=== PATIENT | male | born 1965 | race Two or more races ===

== ENCOUNTER 2020-04-18 15:38 | Emergency (ER) | payer OTHER ==
[~2020-04-18] VITALS: Ht 160 cm; Wt 67.9 kg
--- NOTE | 2020-04-18 15:52 | NUR ---
NEURO. SURG. CALLED @ [id number]
[2020-04-18] MEDS ORDERED: SODIUM CHLORIDE FLUSH 10ML SYR IVF ONE (16:00)
[2020-04-18] MEDS ORDERED: LORazepam 2 MG/ML, 1ML IVPush PRN ×2 (16:00→16:30)
[2020-04-18] MEDS ORDERED: THIAMINE 100 MG in SODIUM CHLORIDE 0.9% 50 ML IVPB ONE (16:00)
[2020-04-18] MEDS ORDERED: LORazepam 2 MG/ML, 1ML ONE (16:10)
--- NOTE | 2020-04-18 16:15 | NUR ---
[facility] ems from [place]. pt had a fall last night while intoxicated. pt was found by brother this am lethargic. pt taken to the hospital. ct revealed subarachnoid bleed and right ruptured temapnic membrane. ems transport to [facility]. in route to [facility] total of 20 mg of morphine given in 5 mg incremnts. plus 1 mg dilaudid. per ems no medial hx, allegies, or meds. pt does have a hx of chronic etoh abuse. pt arrives to er neuro intact. axox4 and able to move all extremities. pupils equal and reactive to light at 2 mm.
[2020-04-18] MEDS ORDERED: ACETAMINOPHEN 325 MG TABLET PO PRN (16:30)
[2020-04-18] MEDS ORDERED: ENALAPRILAT 1.25 MG/ML, 2ML IVPush PRN (16:30)
[2020-04-18] MEDS ORDERED: LABETALOL 5MG/ML, 20ML IVPush PRN (16:30)
[2020-04-18] MEDS ORDERED: POLYETHYLENE GLYCOL 17 GM PACKET PO PRN (16:30)
[2020-04-18] MEDS ORDERED: ONDANSETRON 2MG/ML, 2ML IVPush PRN (16:30)
[2020-04-18] MEDS ORDERED: BISACODYL 10 MG SUPP PR PRN (16:30)
[2020-04-18] MEDS ORDERED: morphine SULFATE 10 MG/ML, 1ML IVPush PRN (16:30)
[2020-04-18] MEDS ORDERED: POTASSIUM CHLORIDE 20 MEQ, MAGNESIUM SULFATE 2 GM, THIAMINE 200 MG, MVI ADULT 10 ML, FO... IV SCH (16:30)
[2020-04-18] MEDS ORDERED: OXYcodone IR 5MG TABLET PO PRN (16:30)
--- NOTE | 2020-04-18 16:51 | NUR ---
brother at bedside. confirms brother has hx of gout. takes medications unknown to him
[2020-04-18 16:56] LABS: BASOPHILS % (AUTO) 0 % (0-1); EOSINOPHILS % (AUTO) 1 % (1-7); LYMPHOCYTES % (AUTO) 17 % (22-44); MEAN CORPUSCULAR HEMOGLOBIN 29.9 pg (27.5-34.5); MEAN CORPUSCULAR HGB CONC 32.9 g/dL (33.2-36.2); MEAN PLATELET VOLUME 9.3 fL (7.4-10.4); MONOCYTES % (AUTO) 10 % (2-9); NEUTROPHILS % (AUTO) 73 % (42-75); PLATELET COUNT 167 x10^3/uL (130-400); RED BLOOD COUNT 4.72 x10^6/uL (4.38-5.82); RED CELL DISTRIBUTION WIDTH 13.6 % (9.4-14.8)
[2020-04-18 16:57] LABS: MD NO
[2020-04-18 17:03] LABS: INTERNATIONAL NORMALIZED RATIO 1.04 (0.93-1.1)
[2020-04-18 17:05] LABS: ALBUMIN 3.9 g/dL (3.4-5.0); ANION GAP 9 mmol/L (5-15); CALCIUM 8.6 mg/dL (8.5-10.1); CHLORIDE 110 mmol/L (98-107); CREATININE 0.69 mg/dL (0.7-1.3)
--- NOTE | 2020-04-18 17:40 | NUR ---
pt asking for water at this time. pt drowsy post ativan. aroused to loud voice or touch. pt advised he is npo at this time
[2020-04-18] MEDS ORDERED: CEFTRIAXONE PMX 2GM/50ML 50 ML ONE (17:54)
--- NOTE | 2020-04-18 17:56 | NUR ---
THROUGHPUT RN: SPOKE W/ DAMIEN DISPATCH, TRANSFER ARRANGED FOR APPROX [id number]
[2020-04-18] MEDS ORDERED: CEFTRIAXONE PMX 2GM/50ML 50 ML IVPB ONE (18:00)
[2020-04-18 18:41] VITALS: BP 120/57
[2020-04-18] MEDS ORDERED: VANCOMYCIN PER PHARMACY MC ONE (19:00)
[2020-04-18] MEDS ORDERED: VANCOMYCIN 1,700 MG in SODIUM CHLORIDE 0.9% 250 ML IV ONE (19:00)
[2020-04-19] MEDS ORDERED: SENNA/DOCUSATE TABLET PO SCH (09:00)
== END 2020-04-19 06:21 | disposition short-term general hospital (02) ==
LOC: ED 16:26 → UNDOADMIN 17:00 → EDIP 17:00 → ED 04-19 06:21
DX: S06.6X0A Traumatic subarachnoid hemorrhage without loss of consciousness, initial encounter (principal); S02.19XA Other fracture of base of skull, initial encounter for closed fracture; R94.31 Abnormal electrocardiogram [ECG] [EKG]; I10 Essential (primary) hypertension; X58.XXXA Exposure to other specified factors, initial encounter; Y93.89 Activity, other specified; Y92.89 Other specified places as the place of occurrence of the external cause; Y99.8 Other external cause status
CPT/HCPCS: 36415; 70450; 70480; 80048; 82040; 85025; 85610; 85730; 93005; 96365; 96366; 96368; 96375; 99285; J0696; J2060; J3370; J3411; J3475; J3480; J7042; J7050; 96374

== ENCOUNTER 2020-05-25 17:17 | Inpatient (IN) | payer OTHER ==
[~2020-05-25] VITALS: Ht 165.1 cm; Wt 63.5 kg
--- NOTE | 2020-05-25 17:40 | NUR ---
BREAK RN: ASSUMED CARE OF PATIENT. PATIENT BIB EMS FROM [facility] FOR LOW SODIUM AND PAINFUL URINATION. VS STABLE. NO ACUTE DISTRESS NOTED. PT HAS BEEN SEEN BY DR FLORES. CARDIAC MONTIOR ON NSR NOTED. CALL LIGHT IN PLACE. WILL CONTINUE TO MONITOR WHILE PRIMARY RN IS ON BREAK.
[2020-05-25] MEDS ORDERED: SODIUM CHLORIDE 0.9% 1,000 ML IV SCH (18:00)
[2020-05-25 18:43] LABS: MICROSCOPIC AUTO
[2020-05-25 19:14] LABS: ANION GAP 7 mmol/L (5-15); CALCIUM 8.5 mg/dL (8.5-10.1); CHLORIDE 95 mmol/L (98-107); CREATININE 0.55 mg/dL (0.7-1.3)
[2020-05-25] MEDS ORDERED: LORazepam 2 MG/ML, 1ML IV PRN ×4 (21:30)
[2020-05-25] MEDS ORDERED: ALUMINUM/MAG/SIMETHICONE 30 ML UDC PO PRN (21:30)
[2020-05-25] MEDS ORDERED: DOCUSATE 100 MG CAPSULE PO PRN (21:30)
[2020-05-25] MEDS ORDERED: ACETAMINOPHEN 325 MG TABLET PO PRN (21:30)
[2020-05-25] MEDS ORDERED: ONDANSETRON 2MG/ML, 2ML IVPush PRN (21:30)
[2020-05-25] MEDS ORDERED: MELATONIN 5 MG TABLET PO PRN (21:30)
[2020-05-25] MEDS ORDERED: LABETALOL 5MG/ML, 20ML IV PRN (21:30)
[2020-05-25] MEDS ORDERED: LIDODERM 5% PATCH TD PRN (21:30)
[2020-05-25 22:18] LABS: ANION GAP 4 mmol/L (5-15); CALCIUM 8.2 mg/dL (8.5-10.1); CHLORIDE 97 mmol/L (98-107); CREATININE 0.55 mg/dL (0.7-1.3)
[2020-05-25 23:26] VITALS: BP 120/78
[2020-05-26 03:13] LABS: BASOPHILS % (AUTO) 1 % (0-1); EOSINOPHILS % (AUTO) 1 % (1-7); LYMPHOCYTES % (AUTO) 19 % (22-44); MEAN CORPUSCULAR HEMOGLOBIN 30.3 pg (27.5-34.5); MEAN PLATELET VOLUME 7.8 fL (7.4-10.4); MONOCYTES % (AUTO) 10 % (2-9); NEUTROPHILS % (AUTO) 69 % (42-75); PLATELET COUNT 223 x10^3/uL (130-400); RED CELL DISTRIBUTION WIDTH 13.5 % (9.4-14.8)
[2020-05-26 03:16] LABS: MD NO
[2020-05-26 03:25] LABS: ALBUMIN 3.3 g/dL (3.4-5.0); ANION GAP 6 mmol/L (5-15); CALCIUM 8.4 mg/dL (8.5-10.1); CHLORIDE 98 mmol/L (98-107)
[2020-05-26 03:30] LABS: ALANINE AMINOTRANSFERASE 19 U/L (12-78); ALKALINE PHOSPHATASE 59 U/L (45-117); BILIRUBIN,TOTAL 0.7 mg/dL (0.2-1.0); CHOLESTEROL, TOTAL 162 mg/dL (140-239); CREATININE 0.51 mg/dL (0.7-1.3); HDL CHOL % 51 % (26-37); HDL CHOLESTEROL (DIRECT) 83 mg/dL (40-60); LDL CHOLESTEROL,CALCULATED 64 mg/dL (54-169); LDL/HDL RATIO 0.8 (0.5-3.0); TOTAL PROTEIN 5.9 g/dL (6.4-8.2); TRIGLYCERIDES 75 mg/dL (50-200); VLDL CHOLESTEROL 15 mg/dL (0-25)
[2020-05-26 07:24] VITALS: BP 112/57
[2020-05-26 10:58] LABS: ANION GAP 7 mmol/L (5-15); CALCIUM 8.6 mg/dL (8.5-10.1); CHLORIDE 98 mmol/L (98-107); CREATININE 0.61 mg/dL (0.7-1.3)
[2020-05-26 12:28] VITALS: BP 124/75
[2020-05-26] MEDS: SODIUM CHLORIDE 1 GM TABLET PO SCH ×2 (12:30→20:49)
[2020-05-26 15:25] LABS: ANION GAP 6 mmol/L (5-15); CALCIUM 8.5 mg/dL (8.5-10.1); CHLORIDE 99 mmol/L (98-107); CREATININE 0.59 mg/dL (0.7-1.3)
[2020-05-26 19:24] VITALS: BP 129/81
[2020-05-27 01:59] VITALS: BP 119/78
[2020-05-27 05:01] LABS: ANION GAP 8 mmol/L (5-15); CALCIUM 8.9 mg/dL (8.5-10.1); CHLORIDE 102 mmol/L (98-107); CREATININE 0.79 mg/dL (0.7-1.3)
[2020-05-27 07:09] VITALS: BP 107/75
[2020-05-27] MEDS: SODIUM CHLORIDE 1 GM TABLET PO SCH (09:53)
[2020-05-27] MEDS ORDERED: HYDROcodone/APAP 5/325 TABLET ONE (09:56)
[2020-05-27 12:46] VITALS: BP 137/87
== END 2020-05-27 16:10 | disposition home or self-care (01) | DRG 690 ==
LOC: ED 17:42 → EDIP 17:43 → 5SO 23:15 → DCLOUNGE 05-27 15:59
PROVIDERS: ADMIT Internal Medicine; ATTEND Internal Medicine
DX: N39.0 Urinary tract infection, site not specified (principal); E87.1 Hypo-osmolality and hyponatremia; D84.9 Immunodeficiency, unspecified; E87.6 Hypokalemia; E11.9 Type 2 diabetes mellitus without complications; I10 Essential (primary) hypertension; M10.9 Gout, unspecified; F10.21 Alcohol dependence, in remission; Z20.828 Contact with and (suspected) exposure to other viral communicable diseases; Z86.73 Personal history of transient ischemic attack (TIA), and cerebral infarction without residual deficits; Z87.828 Personal history of other (healed) physical injury and trauma; Z91.81 History of falling
CPT/HCPCS: 36415; 80048; 80053; 80061; 80320; 81001; 83735; 84550; 85025; 87491; 87591; G0378; G0480; J7030